=== PATIENT | male | born 1990 | race Caucasian/White ===

== ENCOUNTER 2022-10-07 10:02 | Inpatient (IN) | payer MEDICAID, OTHER ==
[~2022-10-07] VITALS: Ht 167.6 cm; Wt 70.5 kg
[2022-10-07 12:14] LABS: HEMATOCRIT 41.8 % (42.0-52.0); HEMOGLOBIN 13.8 g/dl (13.5-17.5); MEAN CORPUSCULAR HEMOGLOBIN 29.1 pg (27.0-33.0); PLATELET COUNT, AUTOMATED 261 10^3/uL (150-450); RED BLOOD COUNT 4.75 10^6/uL (4.30-6.10); WHITE BLOOD COUNT 6.8 10^3/uL (4.0-10.0)
[2022-10-07 12:19] LABS: BARBITURATES URINE NEGATIVE (NEGATIVE); BENZODIAZEPINES URINE NEGATIVE (NEGATIVE); METHADONE URINE NEGATIVE (NEGATIVE); OPIATES URINE NEGATIVE (NEGATIVE); PHENCYCLIDINE URINE NEGATIVE (NEGATIVE)
[2022-10-07 12:22] LABS: AMPHETAMINES LEVEL URINE POSITIVE (NEGATIVE); CANNABINOIDS URINE POSITIVE (NEGATIVE); COCAINE METABOLITE URINE POSITIVE (NEGATIVE)
[2022-10-07 12:46] LABS: ETHYL ALCOHOL (ETHANOL) 0.004 % (0.000-0.010)
[2022-10-07 12:47] LABS: ACETAMINOPHEN LEVEL < 2.0 UG/ML (10.0-20.0); SALICYLATE LEVEL < 3.0 MG/DL (<30)
[2022-10-07 12:48] LABS: ALBUMIN 3.6 G/DL (3.2-5.2); ALKALINE PHOSPHATASE 77 U/L (46-116); ALT/SGPT 22 U/L (7.0-40); AST/SGOT 21 U/L (<34); BILIRUBIN,DIRECT 0.1 MG/DL (<0.4); BILIRUBIN,TOTAL 0.3 MG/DL (0.3-1.2); BLOOD UREA NITROGEN 20 MG/DL (9-23); CALCIUM LEVEL 8.6 MG/DL (8.5-10.1); CARBON DIOXIDE LEVEL 28 MMOL/L (20-31); CHLORIDE LEVEL 106 MMOL/L (98-107); CREATININE FOR GFR 1.32 MG/DL (0.70-1.30); GLOMERULAR FILTRATION RATE > 60.0 (>60); GLUCOSE, FASTING 118 MG/DL (60-100); POTASSIUM SERUM 3.6 MMOL/L (3.5-5.1); SODIUM LEVEL 138 MMOL/L (136-145); TOTAL PROTEIN 6.4 G/DL (5.7-8.2)
[2022-10-07] MEDS ORDERED: IBUPROFEN 400MG TAB PO PRN (14:30)
[2022-10-07] MEDS ORDERED: MOM 30ML SUSPENSION UDC PO PRN (14:30)
[2022-10-07] MEDS ORDERED: ACETAMINOPHEN TAB 650MG DOSE (2X325MG) PO PRN (14:30)
[2022-10-07] MEDS ORDERED: diphenhydrAMINE 25MG CAP PO PRN (14:30)
[2022-10-07] MEDS ORDERED: MAALOX 30 ML SUSP *UDC PO PRN (14:30)
[2022-10-07] MEDS ORDERED: traZODone 50 MG TAB PO PRN (14:30)
[2022-10-07] MEDS ORDERED: HOME MED LIST COMPLETE! XX SCH (16:15)
[2022-10-07] MEDS: NICOTINE 21MG/24HR 1 EA TRANSDERMAL TD SCH (16:53)
[2022-10-07 18:48] VITALS: BP 130/87
[2022-10-08 06:35] VITALS: BP 111/67
[2022-10-08] MEDS: NICOTINE 21MG/24HR 1 EA TRANSDERMAL TD SCH (09:21)
[2022-10-08 15:58] VITALS: BP 122/80
[2022-10-09 06:32] VITALS: BP 156/72
[2022-10-09] MEDS: NICOTINE 21MG/24HR 1 EA TRANSDERMAL TD SCH (08:04)
[2022-10-09] MEDS ORDERED: NICO21PAT TD (08:57)
== END 2022-10-09 12:00 | disposition home or self-care (01) | DRG 755 ==
LOC: M ED 10:02 → M ED INP 14:30 → M PSY 17:45
PROVIDERS: ADMIT Student in an Organized Health Care Education/Training Program; ATTEND Psychiatry & Neurology Psychiatry
DX: F43.23 Adjustment disorder with mixed anxiety and depressed mood (principal); F17.210 Nicotine dependence, cigarettes, uncomplicated; F10.10 Alcohol abuse, uncomplicated; R45.851 Suicidal ideations; R82.998 Other abnormal findings in urine; Z63.0 Problems in relationship with spouse or partner; Z20.822 Contact with and (suspected) exposure to COVID-19; Z88.0 Allergy status to penicillin